=== PATIENT | male | born 1995 | race Caucasian/White ===

== ENCOUNTER 2019-04-07 20:24 | Emergency (ER) | payer SELFPAY ==
[2019-04-07] MEDS ORDERED: OXYCODONE-ACETAMINOPHEN 5-325 MG TABLET PO ONE (22:00)
[2019-04-07] MEDS ORDERED: ONDANSETRON 4 MG TAB.RAPDIS PO ONE (22:00)
[2019-04-07] MEDS ORDERED: LIDOCAINE 1% INJ-PF (10 MG/ML) 30 ML SDV INJ ONE (22:01)
--- NOTE | 2019-04-07 22:02 | ER Document Report ---
ED Medical Screen (RME) - General Chief Complaint: Abscess Stated Complaint: POSSIBLE SPIDER BITE Time Seen by Provider: 04/07/19 21:59 Notes: 23-year-old male with chief complaint of an infected area on his right lower back near the pelvic bone, this is been there for about 4 days, he has been trying to squeeze it, it is started to become red and tender. He has history of the same on his back in another location. Denies fever/chills or any diagnosed medical problems. TRAVEL OUTSIDE OF THE [place] IN LAST 30 DAYS: No - Related Data Allergies/Adverse Reactions: No Known Allergies Allergy (Unverified 04/07/19 21:01) Physical Exam - Vital signs Vitals: Temp Pulse Resp BP Pulse Ox 97.4 F 60 18 112/61 97 04/07/19 21:01 04/07/19 21:01 04/07/19 21:01 04/07/19 21:01 04/07/19 21:01 - Skin Skin irregularity: Abscess - Abscess on the right lower back at the pelvic bone area, has some necrotic tissue on top with some surrounding erythema, appears to be MRSA abscess Course - Re-evaluation Re-evalutation: I have greeted and performed a rapid initial assessment of this patient. A comprehensive ED assessment and evaluation of the patient, analysis of test results and completion of the medical decision making process will be conducted by additional ED providers. - Vital Signs Vital signs: Temp Pulse Resp BP Pulse Ox 97.4 F 60 18 112/61 97 04/07/19 21:01 04/07/19 21:01 04/07/19 21:01 04/07/19 21:01 04/07/19 21:01
[2019-04-07] MEDS ORDERED: SULFAMETHOXAZOLE/TRIMETHOPRIM 800-160 MG TABLET PO ONE (23:15)
[2019-04-07] MEDS ORDERED: HYDROCODONE/ACETAMINOPHEN 5-325 MG (6 TAB/ER DISP) PO PRN (23:15)
--- NOTE | 2019-04-07 23:17 | ER Document Report ---
ED Skin Rash/Insect Bite/Abscs - General Chief Complaint: Abscess Stated Complaint: POSSIBLE SPIDER BITE Time Seen by Provider: 04/07/19 21:59 Notes: Patient is a 23-year-old male with chief complaint of an infected area on his right lower back near the pelvic bone, this is been there for about 4 days, he has been trying to squeeze it, it is started to become red and tender. He has history of the same on his back in another location. Denies fever/chills or any diagnosed medical problems. TRAVEL OUTSIDE OF THE [place] IN LAST 30 DAYS: No - Related Data Allergies/Adverse Reactions: No Known Allergies Allergy (Unverified 04/07/19 21:01) Past Medical History - General Information source: Patient - Social History Smoking Status: Never Smoker Frequency of alcohol use: None Drug Abuse: None Lives with: Family Family History: Reviewed & Not Pertinent - Medical History Medical History: Negative Surgical Hx: Negative - Immunizations Immunizations up to date: Yes Hx Diphtheria, Pertussis, Tetanus Vaccination: Yes Review of Systems - Review of Systems Constitutional: No symptoms reported EENT: No symptoms reported Cardiovascular: No symptoms reported Respiratory: No symptoms reported Gastrointestinal: No symptoms reported Genitourinary: No symptoms reported Male Genitourinary: No symptoms reported Musculoskeletal: No symptoms reported Skin: See HPI Hematologic/Lymphatic: No symptoms reported Neurological/Psychological: No symptoms reported Physical Exam - Vital signs Vitals: Temp Pulse Resp BP Pulse Ox 97.4 F 60 18 112/61 97 04/07/19 21:01 04/07/19 21:01 04/07/19 21:01 04/07/19 21:01 04/07/19 21:01 - Notes Notes: GENERAL: Alert, interacts well. No acute distress. HEAD: Normocephalic, atraumatic. EYES: Pupils equal, round, and reactive to light. Extraocular movements intact. ENT: Oral mucosa moist, tongue midline. Oropharynx unremarkable. Airway patent. LUNGS: Clear to auscultation bilaterally, no wheezes, rales, or rhonchi. No respiratory distress. HEART: Regular rate and rhythm. No murmur ABDOMEN: Soft, non-tender. Non-distended. GENITOURINARY: Deferred EXTREMITIES: Moves all 4 extremities spontaneously. No edema, normal radial and dorsalis pedis pulses bilaterally. No cyanosis. BACK: no cervical, thoracic, lumbar midline tenderness. Moves all extremities in full range of motion. NEUROLOGICAL: Alert and oriented x3. Normal speech. Cranial nerves II through XII grossly intact. PSYCH: Normal affect, normal mood. SKIN: There is a circular abscess on the right lower back just above the pelvis. There is surrounding erythema, there is some black necrotic tissue on the center area, there is tenderness and induration to the area as well. Remaining skin exam is unremarkable. Course - Re-evaluation Re-evalutation: Evaluation consistent with abscess, probably MRSA based on the appearance. Patient consented to have incision and drainage performed, I did have to cut out the area of necrotic tissue, there was some purulent drainage, the area was cleansed thoroughly. Dressing placed, discussed care, antibiotic use, follow- up, return precautions. Patient states understanding and agreement. - Vital Signs Vital signs: Temp Pulse Resp BP Pulse Ox 97.4 F 69 16 113/76 100 04/07/19 23:44 04/07/19 23:44 04/07/19 23:44 04/07/19 23:44 04/07/19 23:44 Procedures - Incision and Drainage Right lower back Type: Single Anesthetic type: 1% Lidocaine mL's of anesthetic: 7 Blade size: 11 I&D procedure: Shurclens applied Incision Method: Incision made by scalpel Amount/type of drainage: Necrotic skin removed, small amount of purulent drainage, minimal bleeding. Discharge - Discharge Clinical Impression: Abscess Condition: Stable Disposition: HOME, SELF-CARE Instructions: Oral Narcotic Medication ([facility]) Additional Instructions: The area is consistent with a MRSA abscess, the tissue had to be cut out, take the antibiotic as prescribed to completion. Take Tylenol or ibuprofen for pain, you can take the stronger pain medication provided at night to help you sleep. Keep clean, clean area with soap and water, keep absorbing gauze dressing over the area. This should heal with time. Follow-up with primary care. Return for any concerning symptoms including spreading redness, developing swelling, fever/chills, or any other concerning or worsening symptoms. Prescriptions: Sulfamethoxazole/Trimethoprim [Bactrim Ds Tablet] 1 each PO BID #14 tablet
[2019-04-07 23:44] VITALS: BP 113/76
== END 2019-04-07 23:48 | disposition home or self-care (01) ==
LOC: ER 20:24
DX: L02.212 Cutaneous abscess of back [any part, except buttock and flank] (principal)
CPT/HCPCS: 99283; 10060; S0119; J3490